=== PATIENT | male | born 1965 | race Two or more races ===

== ENCOUNTER 2024-04-15 22:27 | Inpatient (IN) | payer MEDICAID ==
[~2024-04-15] VITALS: Ht 162.6 cm; Wt 99.8 kg
[2024-04-16] MEDS ORDERED: VANCOMYCIN 1 GM /D5W 250 ML PB IV ONE (00:58)
[2024-04-16] MEDS ORDERED: PIPERACI/TAZO 3.375GM/D5W 50ML PB IV ONE ×2 (00:58→05:33)
[2024-04-16 01:05] LABS: BASOPHILS # (AUTO) 0.1 K/uL (0.0-0.2); BASOPHILS % (AUTO) 1.1 % (0.0-2.0); EOSINOPHILS # (AUTO) 0.2 K/uL (0.0-0.7); EOSINOPHILS % (AUTO) 2.1 % (0.0-6.0); HEMATOCRIT 46 % (39-51); HEMOGLOBIN 16.1 g/dL (13.5-17.5); LYMPHOCYTES # (AUTO) 2.4 K/uL (0.8-4.8); LYMPHOCYTES % (AUTO) 26.2 % (20.0-44.0); MEAN CORPUSCULAR HEMOGLOBIN 30 PG (26.0-33.0); MEAN CORPUSCULAR HGB CONC 35 g/dl (31.0-36.0); MEAN CORPUSCULAR VOLUME 87 fL (80-96); MONOCYTES # (AUTO) 0.5 K/uL (0.1-1.30); MONOCYTES % (AUTO) 5.5 % (2.0-12.0); NEUTROPHILS % (AUTO) 65.1 % (43.0-81.0); PLATELET COUNT (AUTO) 336 K/uL (150-450); RED BLOOD CELL COUNT(AUTO) 5.32 MIL/uL (4.5-6.0); RED CELL DISTRIBUTION WIDTH 12.7 % (11.5-15.0); WHITE BLOOD COUNT (AUTO) 9.2 K/uL (4.3-11.0)
[2024-04-16] MEDS: IV NS 0.9% 1,000 ML BAG IV ONE (01:08)
[2024-04-16] MEDS: PIPERACILLIN /TAZOBACTAM 3.375 G in IV D5W 50 ML IV ONE ×2 (01:08→05:37)
[2024-04-16 01:21] LABS: ALBUMIN 3.3 g/dL (3.4-5.0); BILIRUBIN,DIRECT 0.1 mg/dL (0.0-0.2); BILIRUBIN,TOTAL 0.4 mg/dL (0.2-1.0); TOTAL PROTEIN, SERUM 8.1 g/dL (6.4-8.2)
[2024-04-16 01:22] LABS: INR 0.97 (0.91-1.10); PARTIAL THROMBOPLASTIN TIME 28.7 SEC (24.3-34.3); PROTHROMBIN TIME 10.3 SECS (9.2-11.1)
[2024-04-16] MEDS: VANCOMYCIN 1 GM in IV D5W 250 ML IV ONE (01:40)
[2024-04-16 01:45] LABS: POTASSIUM 4.1 mmol/L (3.5-5.1)
[2024-04-16] MEDS ORDERED: MAGNESIUM HYDROXIDE 30 ML UDC PO PRN (02:30)
[2024-04-16] MEDS ORDERED: HYDROCODONE/APAP 10/325MG TABLET PO PRN (02:30)
[2024-04-16] MEDS ORDERED: ACETAMINOPHEN 325 MG TABLET PO PRN (02:30)
[2024-04-16] MEDS ORDERED: ONDANSETRON HCL/PF 4 MG/2 ML VIAL IVP PRN (02:30)
[2024-04-16] MEDS ORDERED: Z GUARD REMEDY 4 OZ OINT TP PRN (02:30)
[2024-04-16] MEDS: PANTOPRAZOLE 40 MG TABLET.DR PO SCH (07:48)
[2024-04-16 08:00] VITALS: BP 132/86; TEMP 98.1; O2SAT 95
[2024-04-16] MEDS: VANCOMYCIN 1 GM in IV D5W 250 ML IV SCH (08:41)
[2024-04-16] MEDS ORDERED: DEXTROSE 50%-WATER 50 ML DISP.SYRIN IV PRN (11:00)
[2024-04-16] MEDS: BLOOD SUGAR DIAGNOSTIC 1 EACH STRIP VI SCH (12:46)
[2024-04-16] MEDS: PIPERACILLIN /TAZOBACTAM 3.375 G in IV D5W 50 ML IV SCH (12:46)
[2024-04-16] MEDS: INSULIN REGULAR, HUMAN 100 UNIT/ML 3 ML VIAL SQ PRN (13:13)
[2024-04-16 16:00] VITALS: BP 139/89; TEMP 97.9; O2SAT 95
[2024-04-16] MEDS: *INSULIN REGULAR(HUMULIN R)HUM 100 UNIT/ML VIAL SQ PRN (21:55)
[2024-04-16] MEDS: INSULIN GLARGINE, 100 UNIT/ML CARTRIDGE SQ SCH (21:58)
[2024-04-17] VITALS: BP 118/84; TEMP 99; O2SAT 94
[2024-04-17 07:49] LABS: CALCIUM, SERUM 8.7 mg/dL (8.5-10.1); CREATININE 0.9 mg/dL (0.6-1.3)
[2024-04-17] MEDS: INSULIN LISPRO/ASPART 100 UNIT/ML CARTRIDGE SQ SCH (07:50)
[2024-04-17 08:00] VITALS: BP 100/68; TEMP 98; O2SAT 94
[2024-04-17] MEDS: LIDOCAINE 1% INJ 50 ML MDV IJ ONE (08:10)
[2024-04-17] MEDS ORDERED: INSU100C SQ (14:20)
[2024-04-17] MEDS ORDERED: AMOX-430 PO (14:20)
[2024-04-17] MEDS ORDERED: INSU100I30 SQ (14:20)
[2024-04-17 16:00] VITALS: BP 100/60; TEMP 98.1; O2SAT 98
== END 2024-04-17 17:00 | disposition home or self-care (01) | DRG 364 ==
LOC: ER 22:29 → MEDSG1 04-16 01:58
PROVIDERS: ADMIT Nurse Practitioner Acute Care; ATTEND Nurse Practitioner Acute Care
PROC: 0J9J0ZZ Drainage of Right Hand Subcutaneous Tissue and Fascia, Open Approach (ICD-10-PCS; principal; 2024-04-17)
DX: L03.113 Cellulitis of right upper limb (principal); K74.60 Unspecified cirrhosis of liver; E11.65 Type 2 diabetes mellitus with hyperglycemia; F17.210 Nicotine dependence, cigarettes, uncomplicated; F15.90 Other stimulant use, unspecified, uncomplicated; S61.451A Open bite of right hand, initial encounter; Z59.00 Homelessness unspecified; W54.0XXA Bitten by dog, initial encounter; I10 Essential (primary) hypertension; M19.90 Unspecified osteoarthritis, unspecified site; Z87.442 Personal history of urinary calculi; Z56.0 Unemployment, unspecified; J44.9 Chronic obstructive pulmonary disease, unspecified; Z91.199 Patient's noncompliance with other medical treatment and regimen due to unspecified reason; Y93.9 Activity, unspecified; Y92.89 Other specified places as the place of occurrence of the external cause
CPT/HCPCS: 36415; 71045-TC; 76882; 80048-TC; 80076-TC; 80202-TC; 82945-TC; 82962-TC; 83605-TC; 85025-TC; 85730-TC; 87040-TC; A4223; A6403; A6407; G0378; J1815; J2543; J3370; J3490; J7030; J7050; J7060

== ENCOUNTER → 2024-04-15 | Emergency (ER) | payer SELFPAY ==
[~2024-04-15] VITALS: Ht 160 cm; Wt 102.1 kg
[~2024-04-15] MED LIST: AMOX-430 PO; INSU100C SQ; INSU100I30 SQ; PIPERACI/TAZO 3.375GM/D5W 50ML PB IV ONE; PIPERACILLIN /TAZOBACTAM 3.375 G in IV D5W 50 ML IV ONE; VANCOMYCIN 1 GM in IV D5W 250 ML IV ONE
[2024-04-15 18:42] LABS: BASOPHILS # (AUTO) 0.1 K/uL (0.0-0.2); BASOPHILS % (AUTO) 0.8 % (0.0-2.0); EOSINOPHILS # (AUTO) 0.2 K/uL (0.0-0.7); EOSINOPHILS % (AUTO) 1.9 % (0.0-6.0); HEMATOCRIT 46 % (39-51); HEMOGLOBIN 15.9 g/dL (13.5-17.5); LYMPHOCYTES # (AUTO) 1.6 K/uL (0.8-4.8); LYMPHOCYTES % (AUTO) 18.4 % (20.0-44.0); MEAN CORPUSCULAR HEMOGLOBIN 30 PG (26.0-33.0); MEAN CORPUSCULAR HGB CONC 34 g/dl (31.0-36.0); MEAN CORPUSCULAR VOLUME 88 fL (80-96); MONOCYTES # (AUTO) 0.5 K/uL (0.1-1.30); MONOCYTES % (AUTO) 5.3 % (2.0-12.0); NEUTROPHILS # (AUTO) 6.4 K/uL (1.8-8.9); NEUTROPHILS % (AUTO) 73.6 % (43.0-81.0); PLATELET COUNT (AUTO) 310 K/uL (150-450); RED BLOOD CELL COUNT(AUTO) 5.26 MIL/uL (4.5-6.0); RED CELL DISTRIBUTION WIDTH 12.4 % (11.5-15.0); WHITE BLOOD COUNT (AUTO) 8.7 K/uL (4.3-11.0)
[2024-04-15 18:45] VITALS: BP 137/86; TEMP 98.5; O2SAT 96
[2024-04-15 18:46] LABS: INR 0.96 (0.91-1.10); PARTIAL THROMBOPLASTIN TIME 28.5 SEC (24.3-34.3); PROTHROMBIN TIME 10.2 SECS (9.2-11.1)
[2024-04-15 19:06] LABS: LACTIC ACID 2.2 mmol/L (0.4-2.0)
[2024-04-15 19:54] LABS: ALANINE AMINOTRANSFERASE 22 U/L (12-78); ALBUMIN 3.3 g/dL (3.4-5.0); ALKALINE PHOSPHATASE 129 U/L (46-116); ASPARTATE AMINOTRANSFERASE 14 U/L (15-37); BILIRUBIN,DIRECT 0.1 mg/dL (0.0-0.2); BILIRUBIN,TOTAL 0.3 mg/dL (0.2-1.0); CARBON DIOXIDE 20 mmol/L (21-32); CHLORIDE 96 mmol/L (98-107); GLUCOSE 365 mg/dL (74-106); POTASSIUM 4.1 mmol/L (3.5-5.1); SODIUM SERUM 131 mmol/L (136-145); TOTAL PROTEIN, SERUM 8.4 g/dL (6.4-8.2); UREA NITROGEN, BLOOD 16 mg/dL (7-18)
== END ==
LOC: ER 16:31
DX: L03.113 Cellulitis of right upper limb (principal); E11.9 Type 2 diabetes mellitus without complications; F17.210 Nicotine dependence, cigarettes, uncomplicated
CPT/HCPCS: 99285; 71045; 93005; 73130; 85025; 80048; 87040; 83605; 80076; 36415; 84484; 85730; J3370; J2543 ×2; J7060